=== PATIENT | male | born 1985 | race Caucasian/White ===

== ENCOUNTER 2021-03-07 11:32 | Emergency (ER) | payer OTHER ==
[~2021-03-07 11:32] MED LIST: CARDIZEM 60MG T60 MG PO; HUMALOG MI100 UNIT/4 SQ; LEVOFLOXACIN500 MG PO
[2021-03-07 12:04] LABS: HEMOGLOBIN 15.2 gm/dl (14.0-17.5); RED BLOOD COUNT 4.83 M/UL (4.20-5.50); WHITE BLOOD COUNT 7.7 K/UL (4.5-11.0)
[2021-03-07 12:29] LABS: BUN/CREATININE RATIO 20 (0-10)
== END 2021-03-07 12:50 | disposition home or self-care (01) ==
LOC: ER1 11:32
PROVIDERS: Physician Assistant
DX: E11.65 Type 2 diabetes mellitus with hyperglycemia (principal); F17.210 Nicotine dependence, cigarettes, uncomplicated; Z95.0 Presence of cardiac pacemaker
CPT/HCPCS: 80048; 82962; 85025; 99284

== ENCOUNTER 2021-03-15 11:53 | Emergency (ER) | payer OTHER | END 2021-03-15 14:31 | disposition left against medical advice (07) | LOC: ER1 11:53 | DX: Z53.21 Procedure and treatment not carried out due to patient leaving prior to being seen by health care provider (principal) ==

== ENCOUNTER 2021-08-14 14:04 | Inpatient (IN) | payer OTHER ==
[~2021-08-14] VITALS: Ht 170.2 cm; Wt 71.7 kg
[2021-08-14 15:09] LABS: HEMOGLOBIN 17.9 gm/dl (14.0-17.5); RED BLOOD COUNT 5.41 M/UL (4.20-5.50)
[2021-08-14 15:37] LABS: BUN/CREATININE RATIO 18 (0-10)
[2021-08-14 21:11] LABS: BUN/CREATININE RATIO 17 (0-10)
[2021-08-15 00:01] LABS: BUN/CREATININE RATIO 16 (0-10)
[2021-08-15] MEDS ORDERED: ELIQUIS5 MG PO (03:05)
[2021-08-15] MEDS ORDERED: GABAPENTIN600 MG PO (03:05)
[2021-08-15] MEDS ORDERED: INSULIN LI100 UNIT/1 SC (03:07)
[2021-08-15 06:26] LABS: BUN/CREATININE RATIO 15 (0-10)
[2021-08-15 09:40] LABS: BUN/CREATININE RATIO 14 (0-10)
[2021-08-15 13:01] LABS: BUN/CREATININE RATIO 13 (0-10)
[2021-08-15 19:25] LABS: BUN/CREATININE RATIO 13 (0-10)
[2021-08-16 05:49] LABS: RED BLOOD COUNT 4.32 M/UL (4.20-5.50); WHITE BLOOD COUNT 8.2 K/UL (4.5-11.0)
[2021-08-16 06:13] LABS: BUN/CREATININE RATIO 14 (0-10)
[2021-08-17 08:51] LABS: BUN/CREATININE RATIO 16 (0-10)
--- NOTE | 2021-08-17 14:24 | NUR ---
INFORMATION ANALYST ARRANGED FOR HOME DELIVERY OF NEW INSULIN PUMP. PT STATES HE IS ABLE TO SET UP NEW INSULIN PUMP AT HOME.
== END 2021-08-17 17:00 | disposition home or self-care (01) | DRG 919 ==
LOC: ER1 14:04 → CCU 08-15 00:18 → CDU 08-15 00:18 → CCU 08-15 03:48
PROVIDERS: Physician Assistant; Physician Assistant Medical; Surgery; ADMIT Internal Medicine
DX: T85.694A Other mechanical complication of insulin pump, initial encounter (principal); E10.10 Type 1 diabetes mellitus with ketoacidosis without coma; E87.1 Hypo-osmolality and hyponatremia; E87.6 Hypokalemia; Y83.8 Other surgical procedures as the cause of abnormal reaction of the patient, or of later complication, without mention of misadventure at the time of the procedure; F17.200 Nicotine dependence, unspecified, uncomplicated; I49.5 Sick sinus syndrome; Z79.4 Long term (current) use of insulin; Z95.0 Presence of cardiac pacemaker; Z79.899 Other long term (current) drug therapy
CPT/HCPCS: 36415; 36600; 71045; 80048; 80053; 81001; 82009; 82550; 82553; 82803; 82962; 83605; 83690; 83874; 84484; 85025; 85027; 96374; 96375; 96376; 99285; C9113; J1650; J2405; J3480; U0002

== ENCOUNTER 2021-10-20 08:55 | Inpatient (IN) | payer OTHER ==
[~2021-10-20] VITALS: Ht 170.2 cm; Wt 60.6 kg
[~2021-10-20 08:55] MED LIST changes: +ELIQUIS5 MG PO; +GABAPENTIN600 MG PO; +INSULIN LI100 UNIT/1 SQ
[2021-10-20 09:36] LABS: HEMOGLOBIN 16.1 gm/dl (14.0-17.5); RED BLOOD COUNT 4.9 M/UL (4.20-5.50)
[2021-10-20 10:03] LABS: BUN/CREATININE RATIO 22 (0-10)
[2021-10-20] MEDS ORDERED: ZOFRAN ODT 4 MG4 MG PO (12:37)
[2021-10-20 16:55] LABS: BUN/CREATININE RATIO 21 (0-10)
[2021-10-20 21:06] LABS: BUN/CREATININE RATIO 16 (0-10)
[2021-10-21 01:29] LABS: BUN/CREATININE RATIO 19 (0-10)
[2021-10-21 05:22] LABS: WHITE BLOOD COUNT 10.8 K/UL (4.5-11.0)
[2021-10-21 05:24] LABS: HEMOGLOBIN 13.5 gm/dl (14.0-17.5); RED BLOOD COUNT 4.17 M/UL (4.20-5.50)
[2021-10-21 05:58] LABS: BUN/CREATININE RATIO 17 (0-10)
[2021-10-22 07:18] LABS: BUN/CREATININE RATIO 18 (0-10)
[2021-10-22] MEDS ORDERED: OMNICEF 300 MG300 MG PO (15:11)
[2021-10-25 06:51] LABS: BUN/CREATININE RATIO 24 (0-10)
[2021-10-25] MEDS ORDERED: ENOXAPARIN60 MG/0.6 SC (09:56)
[2021-10-25] MEDS ORDERED: JANTOVEN7.5 MG PO (09:56)
== END 2021-10-25 13:17 | disposition home or self-care (01) | DRG 637 ==
LOC: ER1 08:55 → M/S 12:15 → CDU 12:15 → M/S 12:15 → CCU 14:00 → M/S 10-21 20:48
PROVIDERS: Emergency Medicine; Physician Assistant; ADMIT Internal Medicine
DX: E10.10 Type 1 diabetes mellitus with ketoacidosis without coma (principal); J18.9 Pneumonia, unspecified organism; I82.622 Acute embolism and thrombosis of deep veins of left upper extremity; Z20.822 Contact with and (suspected) exposure to COVID-19; F17.210 Nicotine dependence, cigarettes, uncomplicated; I49.5 Sick sinus syndrome; Z96.41 Presence of insulin pump (external) (internal); Z79.4 Long term (current) use of insulin; Z95.0 Presence of cardiac pacemaker; Z79.01 Long term (current) use of anticoagulants; Z98.890 Other specified postprocedural states
CPT/HCPCS: 36415; 36600; 71045; 71260; 80048; 80053; 81001; 82009; 82550; 82553; 82803; 82962; 83605; 83735; 83874; 83880; 84484; 85025; 85379; 85610; 85730; 87040; 93005; 93971; 96372; 96374; 96375; 96376; 99285; G0378; J0456; J0696; J1650; J2270; J2405; J7030; Q9967; U0002

== ENCOUNTER 2022-06-26 00:13 | Emergency (ER) | payer OTHER ==
[~2022-06-26 00:13] MED LIST changes: +ENOXAPARIN60 MG/0.6 SC; +JANTOVEN7.5 MG PO; +OMNICEF 300 MG300 MG PO; +ZOFRAN ODT 4 MG4 MG PO
== END 2022-06-26 04:45 | disposition home or self-care (01) ==
LOC: ER1 00:13
DX: T15.01XA Foreign body in cornea, right eye, initial encounter (principal); E11.9 Type 2 diabetes mellitus without complications; F17.210 Nicotine dependence, cigarettes, uncomplicated; X58.XXXA Exposure to other specified factors, initial encounter
CPT/HCPCS: 99283